=== PATIENT | female | born 1955 | race Caucasian/White ===

== ENCOUNTER 2017-12-03 00:05 | Emergency (ER) | payer MEDICAID, OTHER ==
[~2017-12-03] VITALS: Ht 154.9 cm; Wt 81.0 kg
[2017-12-03 00:11] VITALS: BP 161/84
== END 2017-12-03 00:20 | disposition left against medical advice (07) ==
LOC: ER 00:05
DX: Z53.21 Procedure and treatment not carried out due to patient leaving prior to being seen by health care provider (principal)